=== PATIENT | female | born 1975 | race African-American/Black ===

== ENCOUNTER 2018-10-24 01:41 | Emergency (ER) | payer BC ==
[2018-10-24 01:46] VITALS: BMI 21.7
[2018-10-24] MEDS ORDERED: SODIUM CHLORIDE 0.9% 1000 ML INFUS.BAG IV ONE (01:52)
[2018-10-24] MEDS ORDERED: ONDANSETRON 4 MG/2 ML VIAL IVPUSH ONE (02:12)
[2018-10-24] MEDS ORDERED: ACETAMINOPHEN 1000 MG/100 ML VIAL (NON FORMULARY) IVPB ONE (02:21)
--- NOTE | 2018-10-24 02:21 | PDOC ---
History of Present Illness - General Chief Complaint: Vaginal Bleeding Stated Complaint: ABDOMINAL PAIN,POSSIBLE MISCARRIAGE Time Seen by Provider: 10/24/18 01:45 History Source: Patient Exam Limitations: No Limitations - History of Present Illness Initial Comments: 10/24/18 02:19 43 yo F ( 1 prior elective ab) at 6 weeks here with vaginal bleeidng. has had on prior visit at a clinic [place] the city. c/o lower abd cramping and flank pain. pain is severe crampy. does report heavy vaginal bleeding. with clots.started as spotting 2 days ago, and progressed today to worse than a period. did recently start having n/v. states took two aleve prior for her pain. no f/c no h/o ectopic. did not have an ultrasound yet this . no mod factors. no urinary complaints. LMP was 05/24 ( h/o very irregular periods. ) 10/24/18 02:52 Past History - Past Medical History Allergies/Adverse Reactions: Allergies Allergy/AdvReac Type Severity Reaction Status Date / Time No Known Allergies Allergy Verified 10/24/18 03:11 Home Medications: Ambulatory Orders No122/Iron/Folic Acid [ Multi Tablet] 1 each PO DAILY 10/24/18 COPD: No - Suicide/Smoking/Psychosocial Hx Smoking History: Never smoked Review of Systems - Review of Systems Constitutional: No: Chills, Diaphoresis, Fever HEENTM: No: Eye Pain Respiratory: No: Cough, Orthopnea Cardiac (ROS): No: Chest Pain, Edema, Irregular Heart Rate ABD/GI: Yes: Nausea, Vomiting. No: Abdominal Distended : Yes: Other (vaginal bleeding. ). No: Burning, Dysuria, Discharge Musculoskeletal: No: Back Pain, Gout, Joint Pain Integumentary: No: Bruising, Change in Color All Other Systems: Reviewed and Negative *Physical Exam - Vital Signs Last Vital Signs Temp Pulse Resp BP Pulse Ox 97.8 F 80 18 147/106 H 100 10/24/18 01:44 10/24/18 01:44 10/24/18 01:44 10/24/18 01:44 10/24/18 01:44 - Physical Exam Comments: 10/24/18 02:21 awake alert lungs clear bilaterally heart rrr no mrg abd soft mild suprapubic ttp no rebound no guarding. ext wwp. nuero awake alert upset, moves all four ext. 10/24/18 02:54 ED Treatment Course - LABORATORY CBC & Chemistry Diagram: 10/24/18 02:31 10/24/18 02:31 - RADIOLOGY Radiology Studies Ordered: Category Date Time Status TRANSVAGINAL US PREG [US] Stat Ultrasound 10/24/18 01:51 Taken Medical Decision Making - Medical Decision Making 10/24/18 02:54 43 yo F at approx 6 weeks gestation per prior ob eval, here with vaginal bleeding. abd and flank pain n/v differential ectopic ( unlikely) , miscarriage, pyelo, renal colic. plan tvus r/ o threatened vs. incomplete ab. labs r/o anemia. blood type bhcg. iv pain medication and antiemetics. iv hydration. 10/24/18 03:05 pt given iv tylenol zofran and ivfluids. TVUS with yolk sac and low lying gestational sac, type and screen pending. pt with excrutiating pain yelling and hysterical. given morphine for pain. 10/24/18 04:23 pt bhcg is only 543. likely abnormal vs. threatened incomplete ab. will page ob/ taste tester. 10/24/18 04:30 dr macias paged oncall ob/ pt more comfortable after morphine, and zofran. 10/24/18 04:34 d/w dr macias, recommend expectant management likley inevitable miscarriage. can give toradol for pain and cramping, and fu pcp. RH poisitive. 10/24/18 05:56 pt feeling much better, explained results of tvus. will require serial bhcg . expectant mangement. motrin for pain control. *DC/Admit/Observation/Transfer Diagnosis at time of Disposition: Threatened - Discharge Dispostion Disposition: HOME Condition at time of disposition: Improved Decision to Admit order: No - Referrals Referrals: Juany Macias MD [Staff Physician] - - Patient Instructions Printed Discharge Instructions: Miscarriage, Threatened Additional Instructions: you had an ultrasound today in our emergency department, transvaginal ultrasound shows a 7 wk plus one day gestational sac, a yolk sac is seen but no definitive pole. The BHCG is 563 unsually low for this far along in the . you will need a repeat bhcg in 48 - 72 hours . return for dizziness, severe or worsening pain, or any concerns. you can take ibuprofen 400 mg every 8 hrs as needed for pain. return immediately for dizziness, fever or any concerns. you should follow up with your dental office receptionist in the office. any difficulty with followup you can also see dr Macias ( Ob/ Law Firm Consultant) see referral information for phone number. - Post Discharge Activity
[2018-10-24] MEDS ORDERED: ACETAMINOPHEN INJECTION 100 ML IVPB ONE (02:29)
[2018-10-24] MEDS ORDERED: ONDANSETRON 4 MG/2 ML VIAL ONE (02:29)
[2018-10-24 02:37] LABS: BASO % 0.4 % (0-2.0); EOS % 0.5 % (0-4.5); HEMATOCRIT 38.6 % (32.4-45.2); HEMOGLOBIN 12.7 GM/dL (10.7-15.3); LYMPH % 10.7 % (8-40); MCH 30.4 pg (25.7-33.7); MCHC 32.8 g/dl (32.0-36.0); MEAN CELL VOLUME 92.8 fl (80-96); MEAN PLT VOLUME 8.8 fl (7.5-11.1); MONO % 5.8 % (3.8-10.2); NEUT % 82.6 % (42.8-82.8); PLATELET COUNT 235 K/MM3 (134-434); RBC 4.16 M/mm3 (3.60-5.2); RDW 13.2 % (11.6-15.6); WHITE BLOOD COUNT 11.9 K/mm3 (4.0-10.0)
[2018-10-24] MEDS ORDERED: morphine CARPU-JECT 4 MG/1 ML DISP.SYRIN IVPUSH ONE (03:04)
[2018-10-24] MEDS ORDERED: morphine SULFATE 4 MG/ML VIAL ONE (03:06)
[2018-10-24 03:14] LABS: ALBUMIN 4.3 g/dl (3.4-5.0); BILIRUBIN,TOTAL 0.4 mg/dL (0.2-1); CALCIUM 8.9 mg/dL (8.5-10.1); CREATININE 0.8 mg/dL (0.55-1.3); POTASSIUM 4.5 mmol/L (3.5-5.1); TOT PROT 7.4 g/dl (6.4-8.2)
[2018-10-24] MEDS ORDERED: KETOROLAC TROMETHAMINE 30 MG/1 ML VIAL IVPUSH ONE (04:35)
[2018-10-24] MEDS ORDERED: KETOROLAC TROMETHAMINE 30 MG/1 ML VIAL ONE (04:54)
[2018-10-24 05:52] VITALS: BP 102/59; PULSE 68; TEMP 98.2
== END 2018-10-24 06:20 | disposition home or self-care (01) ==
LOC: JER 01:41
PROC: 3E033GC Introduction of Other Therapeutic Substance into Peripheral Vein, Percutaneous Approach (ICD-10-PCS; principal; 2018-10-24)
PROC: 3E033NZ Introduction of Analgesics, Hypnotics, Sedatives into Peripheral Vein, Percutaneous Approach (ICD-10-PCS; 2018-10-24)
PROC: 3E033NZ Introduction of Analgesics, Hypnotics, Sedatives into Peripheral Vein, Percutaneous Approach (ICD-10-PCS; 2018-10-24)
PROC: 3E0333Z Introduction of Anti-inflammatory into Peripheral Vein, Percutaneous Approach (ICD-10-PCS; 2018-10-24)
DX: O26.891 Other specified pregnancy related conditions, first trimester (principal); O20.0 Threatened abortion; Z3A.01 Less than 8 weeks gestation of pregnancy
CPT/HCPCS: 36415; 76817-TC; 80053; 84702; 85025; 86850; 86900; 86901; 99282-25; J0131; J7030